=== PATIENT | female | born 1965 | race Caucasian/White ===

== ENCOUNTER 2023-12-22 15:00 | Inpatient (IN) | payer MEDICARE ==
[~2023-12-22 15:00] MED LIST: Iopamidol-370 76% 500 ML MDV (1 ML CHARGE) ONE
[2023-12-22 16:45] LABS: Actual Bicarbonate (HCO3v) 27.4 mEq/L (22-28); Base Excess 2.4 mEq/L (-2.0 to +3.0); Calcium, Ionized (venous) 1.15 mmol/L (1.16-1.32); Chloride (VBG) 94 mmol/L (98-106); Hematocrit-VBG 33 % (36.0-47.0); Hemoglobin (Hb) 11.3 g/dL (11.7-16.0); Potassium (VBG) 3.23 mmol/L (3.70-5.30); Sodium 136 mmol/L (133-146)
[2023-12-22 16:56] LABS: #Basophils Less than 0.03 10x3/uL (0.0-0.2); #Eosinphils Less than 0.03 10x3/uL (0.0-0.7); %Basophils 0.3 % (0.0-1.0); %Eosinophils 0.3 % (0.0-10.0); %Lymphocytes 28.3 % (21.0-51.0); %Monocytes 9.5 % (0.0-10.0); %Neutrophils 61.3 % (42.0-75.0); Hematocrit 30.5 % (36.0-47.0); Hemoglobin 10.3 g/dL (12.0-16.0); Mean Corpuscular HGB CONC 33.8 g/dL (32.0-36.0); Mean Corpuscular Volume 103.7 fL (78.0-98.0); Platelet Count 120 10x3/uL (130-400); RBC Distribution Width 13.5 % (11.5-14.5); Red Blood Cell (RBC) Count 2.94 mill/uL (4.20-5.40)
[2023-12-22 16:59] LABS: ALT (SGPT) 41 U/L (8-55); AST (SGOT) 77 U/L (5-34); Albumin 3.9 g/dL (3.5-5.0); Alkaline Phosphatase 88 U/L (40-110); Anion Gap 16 mmol/L (10-20); BUN (Urea Nitrogen) 14 mg/dL (9.8-20.1); Bilirubin, Total 0.7 mg/dL (0.2-1.2); Calc. Creatinine Clearance 0 mL/min (70-130); Calcium 9.6 mg/dL (7.8-10.44); Carbon Dioxide 25 mmol/L (22-29); Chloride 96 mmol/L (98-107); Estimated GFR 72; Globulin 2.9 g/dL (2.4-3.5); Glucose 112 mg/dL (70-105); Lipase 6 U/L (8-78); Magnesium 1.6 mg/dL (1.6-2.6); Potassium 3.1 mmol/L (3.5-5.1); Protein, Total 6.8 g/dL (6.0-8.3); Sodium 134 mmol/L (136-145)
[2023-12-22 17:00] LABS: Troponin I Less than 0.010 ng/mL (< 0.028)
[2023-12-22 17:01] LABS: Bacteria/HPF 3+ HPF (None Seen); Bilirubin Negative (Negative); Blood, Urine 1+ (Negative); CAUTI Indications for Culture Dysuria,urgency,freq; Clarity Turbid (Clear); Glucose, Urine (Dipstick) Normal (Negative); Ketone, Urine Trace mg/dL (Negative); Leukocyte 500 Leu/uL (Negative); Nitrite 2+ (Negative); Protein, Urine (Dipstick) 50 mg/dL (Neg-Trace); Specific Gravity, Urine 1.028 (1.002-1.036); Squamous Epithelial 0-3 HPF (0-3); WBC/HPF Greater than 50 HPF (0-3)
[2023-12-22 17:04] LABS: Urine Culture Reflex Yes Yes
[2023-12-22 17:17] LABS: Influenza A by NAA Not Detected (NotDetected); Influenza B by NAA Not Detected (NotDetected); SARS-CoV-2 NAA Rapid Test Not Detected (NotDetected)
[2023-12-22] MEDS ORDERED: Sodium Chloride 0.9% 100 ML ONE (17:24)
[2023-12-22] MEDS ORDERED: cefTRIAXone (ROCEPHIN) 1 GM VIAL ONE (17:24)
[2023-12-22] MEDS ORDERED: Morphine 4 MG/ML VIAL ONE (17:51)
[2023-12-22] MEDS ORDERED: Ondansetron PF 4 MG/2 ML Vial IVP PRN (18:05)
[2023-12-22] MEDS ORDERED: Ondansetron ODT 4 MG TAB PO PRN (18:05)
[2023-12-22] MEDS ORDERED: Morphine 2 MG/ML VIAL ONE (18:35)
[2023-12-22 19:32] LABS: Lactic Acid 2.4 mmol/L (0.5-2.2)
[2023-12-22 20:31] VITALS: BMI 25.9
[2023-12-22] MEDS: Potassium Chloride 20 MEQ TAB PO SCH (21:21)
[2023-12-22] MEDS: Magnesium 2 GM/50 ML(in water) 2 GM in Premix 1 BAG IVPB SCH (21:22)
[2023-12-23] MEDS: Sodium Chloride 0.9% 1,000 ML IV SCH (00:51)
[2023-12-23] MEDS: ALPRAZolam 0.25 MG TAB PO PRN (02:54)
[2023-12-23 03:55] LABS: #Basophils Less than 0.03 10x3/uL (0.0-0.2); #Eosinphils Less than 0.03 10x3/uL (0.0-0.7); %Basophils 0.4 % (0.0-1.0); %Eosinophils 0.7 % (0.0-10.0); %Monocytes 11.9 % (0.0-10.0); %Neutrophils 46.6 % (42.0-75.0); Hematocrit 25.9 % (36.0-47.0); Hemoglobin 8.6 g/dL (12.0-16.0); Mean Corpuscular HGB CONC 33.2 g/dL (32.0-36.0); Mean Corpuscular Hemoglobin 35.7 pg (27.0-31.0); Mean Corpuscular Volume 107.5 fL (78.0-98.0); Platelet Count 98 10x3/uL (130-400); RBC Distribution Width 13.2 % (11.5-14.5); Red Blood Cell (RBC) Count 2.41 mill/uL (4.20-5.40)
[2023-12-23 04:41] LABS: Lactic Acid 1.5 mmol/L (0.5-2.2)
[2023-12-23 04:45] LABS: Anion Gap 11 mmol/L (10-20); BUN (Urea Nitrogen) 9 mg/dL (9.8-20.1); Calc. Creatinine Clearance 93 mL/min (70-130); Calcium 8.6 mg/dL (7.8-10.44); Carbon Dioxide 25 mmol/L (22-29); Chloride 103 mmol/L (98-107); Estimated GFR 91; Glucose 113 mg/dL (70-105); Magnesium 2.1 mg/dL (1.6-2.6); Potassium 3.5 mmol/L (3.5-5.1); Sodium 135 mmol/L (136-145)
[2023-12-23] MEDS: Gabapentin 300 MG CAP PO SCH (08:18)
[2023-12-23] MEDS: Aspirin 81 mg Enteric Coated Tablet PO SCH (08:18)
[2023-12-23] MEDS: Amlodipine 10 MG TAB PO SCH (08:19)
[2023-12-23] MEDS: Acetaminophen 325 MG TAB PO PRN (14:36)
[2023-12-23] MEDS: cefTRIAXone\\ROCEPHIN 1 GM in Sodium Chloride 0.9% 100 ML IVPB SCH (15:58)
[2023-12-23] MEDS: ALPRAZolam 0.5 MG TAB PO SCH (15:58)
[2023-12-23] MEDS: Ketorolac Tromethamine 30 MG (1 mL) VIAL IVP PRN (16:59)
[2023-12-23] MEDS: Rosuvastatin 20 MG TAB PO SCH (21:02)
[2023-12-23] MEDS: Sertraline 100 MG TAB PO SCH (21:03)
[2023-12-23] MEDS: Mirtazapine 15 MG TAB PO SCH (21:03)
[2023-12-24] MEDS: Sodium Chloride 0.9% 500 ML IV SCH (04:25)
[2023-12-24 06:33] LABS: Anion Gap 13 mmol/L (10-20); BUN (Urea Nitrogen) 7 mg/dL (9.8-20.1); Calc. Creatinine Clearance 96 mL/min (70-130); Carbon Dioxide 24 mmol/L (22-29); Chloride 112 mmol/L (98-107); Estimated GFR 94; Glucose 92 mg/dL (70-105); Magnesium 2.1 mg/dL (1.6-2.6); Potassium 3.4 mmol/L (3.5-5.1); Sodium 146 mmol/L (136-145)
[2023-12-24] MEDS: Lidocaine 2% 6 ML (Jelly) SYR TOP PRN (06:34)
[2023-12-24 06:39] LABS: #Basophils Less than 0.03 10x3/uL (0.0-0.2); %Basophils 0.7 % (0.0-1.0); %Eosinophils 1.4 % (0.0-10.0); %Lymphocytes 36.6 % (21.0-51.0); %Monocytes 7.2 % (0.0-10.0); %Neutrophils 53.7 % (42.0-75.0); Hematocrit 32.6 % (36.0-47.0); Hemoglobin 10.4 g/dL (12.0-16.0); Mean Corpuscular HGB CONC 31.9 g/dL (32.0-36.0); Mean Corpuscular Hemoglobin 34.4 pg (27.0-31.0); Mean Corpuscular Volume 107.9 fL (78.0-98.0); Mean Platelet Volume 10.2 fL (7.4-10.4); Platelet Count 108 10x3/uL (130-400); RBC Distribution Width 13.6 % (11.5-14.5); Red Blood Cell (RBC) Count 3.02 mill/uL (4.20-5.40)
[2023-12-24 06:46] LABS: Base Excess 0.3 mEq/L (-2.0 to +3.0); Calcium, Ionized (venous) 1.13 mmol/L (1.16-1.32); Chloride (VBG) 109 mmol/L (98-106); Hematocrit-VBG 34 % (36.0-47.0); Hemoglobin (Hb) 11.6 g/dL (11.7-16.0); Potassium (VBG) 3.44 mmol/L (3.70-5.30); Sodium 147 mmol/L (133-146); pH (venous) 7.366 (7.32-7.43)
[2023-12-24] MEDS: Dextrose 5% in Water 1,000 ML IV SCH (08:35)
[2023-12-24 11:08] VITALS: BMI 25.9
[2023-12-24] MEDS: ALPRAZolam 0.5 MG TAB PO PRN (14:22)
[2023-12-24] MEDS: Morphine 2 MG/ML VIAL SLOW IVP PRN (15:38)
[2023-12-24] MEDS: oxyCODONE 5 MG TAB PO PRN (20:03)
[2023-12-24] MEDS: Zolpidem Tartrate 5 MG TAB PO PRN (20:07)
[2023-12-25 05:32] LABS: #Basophils Less than 0.03 10x3/uL (0.0-0.2); %Basophils 0.2 % (0.0-1.0); %Eosinophils 1.3 % (0.0-10.0); %Lymphocytes 29.1 % (21.0-51.0); %Monocytes 9.2 % (0.0-10.0); Hematocrit 25.9 % (36.0-47.0); Hemoglobin 8.3 g/dL (12.0-16.0); Mean Corpuscular Hemoglobin 35.6 pg (27.0-31.0); Mean Corpuscular Volume 111.2 fL (78.0-98.0); Mean Platelet Volume 9.6 fL (7.4-10.4); Platelet Count 98 10x3/uL (130-400); RBC Distribution Width 14.3 % (11.5-14.5); Red Blood Cell (RBC) Count 2.33 mill/uL (4.20-5.40)
[2023-12-25 05:51] LABS: Anisocytosis SLIGHT = 6-15 cells HPF (0-5); Macrocytosis SLIGHT = 6-15 cells HPF (0-5); Platelet Adequacy Comment Platelets Decreased; Polychromasia SLIGHT = 2-3 cells HPF (0-2)
[2023-12-25 06:26] LABS: Anion Gap 14 mmol/L (10-20); BUN (Urea Nitrogen) 11 mg/dL (9.8-20.1); Calc. Creatinine Clearance 85 mL/min (70-130); Calcium 8.5 mg/dL (7.8-10.44); Carbon Dioxide 25 mmol/L (22-29); Chloride 109 mmol/L (98-107); Estimated GFR 82; Glucose 91 mg/dL (70-105); Potassium 3.1 mmol/L (3.5-5.1); Sodium 145 mmol/L (136-145)
[2023-12-25] MEDS: Potassium Chloride 20 MEQ TAB PO SCH ×2 (10:18→13:57)
[2023-12-26] MEDS: Mirabegron ER 25 MG ER.TAB PO SCH (09:46)
[2023-12-26 14:43] VITALS: BP 130/76; TEMP 97.4
== END 2023-12-26 15:09 | DRG 871 ==
LOC: ERS 15:00 → T4-B 18:13 → OBSVTOIN 12-24 15:37
PROVIDERS: ADMIT Internal Medicine; ATTEND Internal Medicine
DX: A41.9 Sepsis, unspecified organism (principal); D61.811 Other drug-induced pancytopenia; C56.9 Malignant neoplasm of unspecified ovary; N30.00 Acute cystitis without hematuria; T45.1X5A Adverse effect of antineoplastic and immunosuppressive drugs, initial encounter; I10 Essential (primary) hypertension; R63.0 Anorexia; F41.9 Anxiety disorder, unspecified; E78.5 Hyperlipidemia, unspecified; Z68.25 Body mass index [BMI] 25.0-25.9, adult; Z88.8 Allergy status to other drugs, medicaments and biological substances; Z79.82 Long term (current) use of aspirin; Z79.899 Other long term (current) drug therapy; Z90.710 Acquired absence of both cervix and uterus; Z90.722 Acquired absence of ovaries, bilateral
CPT/HCPCS: 36415; 71045; 71275; 74177; 80048; 80053; 81001; 82607; 82805; 83605; 83690; 83735; 83880; 84484; 85025; 86850; 86900; 86901; 87040; 87077; 87086; 87186; 93005; 93306; 96365; 96375; 96376; G0378; J0696; J1642; J1885; J2270; J2272; J3475; J3490; J7030; J7050; J7070; Q9967